=== PATIENT | female | born 1995 | race Caucasian/White ===

== ENCOUNTER 2019-02-16 22:32 | Emergency (ER) | payer MEDICAID, SELFPAY ==
[2019-02-16 22:33] VITALS: BP 154/89; PULSE 108; RESP 16; TEMP 36.2; O2SAT 100; BMI 31.8
[2019-02-16 23:20] VITALS: PULSE 104; RESP 16
--- NOTE | 2019-02-16 23:23 | ED.VISSUMM ---
- ER Visit Summary Date of Service: 02/16/19 Chief Complaint: Dizziness History of Present Illness: The patient is a 23 F who presents with dizziness that is been getting worse over the past 4 days. Patient states she feels shaky and lightheaded at times. Patient states that at times the room feels like it is spinning. Patient states this is worse with movement of her head. Patient denies any hearing changes or tinnitus. Patient admits to some palpitations. Patient states she occasionally has some tightness in her chest. Patient admits to nausea but denies any vomiting. Patient admits to a mild intermittent headache. Physical Examination: Vital signs are stable. Patient is afebrile. Patient is in no acute distress. Pupils are equal, round, and reactive to light bilaterally. Extraocular muscles are intact. There is some nystagmus with left lateral gaze. Cranial nerves II through XII are intact. Strength is 5/5 bilateral knee upper and lower extremities. There are no sensory deficits noted. Oral mucosa is pink and moist. Neck is supple. Trachea is midline. There is no JVD. Heart was regular rate and rhythm. Lungs are clear and equal bilaterally. Abdomen is soft. Bowel sounds are normal. There is no tenderness. There is no guarding. Test Results: CBC and basic metabolic profile were obtained and were within normal limits. Emergency Department Course and Treatment: Patient was given a dose of meclizine here. Patient felt better on reevaluation. Patient had no further dizziness. Patient was given a prescription for meclizine. Patient was instructed to drink plenty of fluids. Patient was instructed to follow-up with her primary care physician in 5 to 7 days. Patient understood and was agreeable with the plan. All questions were answered. Disposition: Discharge home Impression: Vertigo This note was generated with [employer] dictation software. It may contain incorrect words, spelling, and punctuation that were not noted in review of the chart prior to signing ED Disposition - Plan for ED Patient: Disposition: Home or Assisted Living Diagnosis: Vertigo Instructions: VERTIGO, Unspecified Prescriptions: Meclizine HCl [Antivert] 25 mg PO 4X/DAY PRN PRN #20 tab PRN Reason: Dizziness Prescription Printed Referrals: Care Physician,No Primary [Primary Care Provider] - 5-7 Days
[2019-02-16 23:43] LABS: Absolute Lymphocyte Count 2.45 X10^3/uL (0.83-4.51); Absolute Neutrophil Count 7.1 X10^3/uL (2.0-7.7); Basophil# 0.05 X10^3/uL; Basophil% 0.5 % (0-1); Eosinophil# 0.22 X10^3/uL; Eosinophils% 2.1 % (0-5); Hematocrit 37.9 % (37-47); Hemoglobin 12.7 g/dL (12.0-15.0); Lymphocyte # 2.45 X10^3/ul (4.0); Lymphocyte % 23.1 % (19-41); Mean Corp Hgb Conc 33.5 g/dL (32-36); Mean Corpuscular Hgb 29.3 pg (27.0-32.0); Mean Corpuscular Volume 87.5 fL (81-99); Mean Platelet Vol. 9.9 fl (6.2-12.0); Monocyte# 0.79 X10^3/uL; Monocyte% 7.4 % (0-10); NRBC Flagged by Analyzer 0 % (0-5); Neutrophil # 7.07 X10^3/uL (2.7-7.7); Neutrophil % 66.5 % (47-70); Platelet Count 324 K/mm3 (150-450); RBC Distribution Width CV 12.3 % (11.6-14.6); RBC Distribution Width SD 39.6 fl (35.1-43.9); Red Blood Count 4.33 M/mm3 (4.2-5.4); White Blood Count 10.6 K/mm3 (4.4-11.0)
[2019-02-16 23:54] LABS: Internal QC Validated? YES +Cl - CLEAR BKGD; Pregnancy, Serum, hCG Quali. NEGATIVE Negative
[2019-02-17] MEDS: Meclizine HCl 25 MG Tablet PO (00:07)
[2019-02-17] MEDS: 0.9% Normal Saline 1,000 ML 1000 ML IV (00:07)
[2019-02-17 00:10] LABS: Anion Gap 6 (5-15); BUN 19 mg/dL (7-18); BUN/Creat Ratio 21.7 RATIO (10-20); Calcium,Total 9.6 mg/dL (8.5-10.1); Chloride 106 mmol/L (98-107); Creatinine, Serum 0.88 mg/dL (0.55-1.02); EST Glomerular Filtration Rate 84 mL/min (>60); Est Glom Filt Rate - Afr Amer 102 mL/min (>60); Estimated Creatinine Clearance 75.03 ml/min; Glucose 137 mg/dL (74-106); Potassium 3.7 mmol/L (3.5-5.1); Sodium Level 138 mmol/L (136-145)
[2019-02-17 00:24] VITALS: BP 131/84; PULSE 87; RESP 16; O2SAT 97
== END 2019-02-17 00:35 | disposition home or self-care (01) ==
PROVIDERS: Emergency Provider Emergency Medicine
DX: R42 Dizziness and giddiness (principal); R11.0 Nausea; R51 Headache
CPT/HCPCS: 80048; 84703; 85025; 99285; J7030; A4216

== ENCOUNTER 2021-05-09 09:00 | Emergency (ER) | payer MEDICAID, SELFPAY ==
[2021-05-09 09:01] VITALS: BP 129/69; PULSE 90; RESP 17; TEMP 36.2; O2SAT 98; BMI 35.5
--- NOTE | 2021-05-09 09:11 | RAD_ITS ---
STUDY: X-RAY - LEFT FOOT CLINICAL: Female, 26 years old. Foot injury. TECHNIQUE: 3 view(s) of the foot. COMPARISON: None. FINDINGS: Normal talus, calcaneus, and tarsal bones. Normal visualized subtalar, talonavicular, calcaneocuboid, tarsal and tarsometatarsal articulations. Normal metatarsi. Normal metatarsophalangeal joint of the great toe. Normal tibial and fibular sesamoid bones. Normal interphalangeal joint of the great toe. Normal phalanges of the great toe. Normal second through fifth metatarsophalangeal joints. Normal interphalangeal joints and phalanges of the lesser toes. The soft tissue structures are unremarkable. RAD/Foot min 3 Views IMPRESSION: Normal x-ray examination of the foot. Electronically Signed: Pradip Mae MD at 9:45 EDT ,
--- NOTE | 2021-05-09 10:19 | EDS_ITS ---
HPI History of Present Illness HPI Narrative: Patient drainage to her left second toe that occurred this morning. Patient states she excellently dropped a can onto her toe.Patient presents with describes her pain as burning. Patient states it is worse whenever she tries to move it. Patient states nothing seems to help. Patient denies any paresthesias or weakness. Patient is unsure of her last tetanus. Patient denies any other injuries. Chief Complaint: Lower Extremity Injury Informant: patient Occured/Mechanism Mechanism/Context: Yes direct blow Onset/Context/Timing Onset: Today Context: Sudden Onset Timing: Continuous Quality of Pain: Burning Location: Left second toe Worsened by: Movement Relieved by: Rest Associated Symptoms Associated Symptoms: Negative for Parasthesia, Weakness and Loss of Funtion Narrative Tetanus Immunization: Unknown PFSH PFSH Home Medications meclizine 25 mg PO 4X/DAY PRN PRN #20 tab 02/17/19 [Rx Last Taken Unknown] Allergy/AdvReac Type Severity Reaction Status Date / Time Penicillins Allergy Rash Verified 05/09/21 09:00 Surgical History History of section Social History Smoking Status: Never smoker ROS ROS ED Constitutional Constitutional ED: Denies chills or fever(s) Eyes Eyes: Denies blurry vision or change in vision ENT ENT ED: Denies rhinorrhea or sore throat Cardiovascular Cardiovascular: Denies chest pain or palpitations Respiratory/Chest Respiratory/Chest: Denies cough or dyspnea Gastrointestinal Gastrointestinal: Denies nausea or vomiting Genitourinary Genitourinary ED: Denies dysuria or hematuria Musculoskeletal Musculoskeletal: Denies back pain or neck pain Integumentary Denies abscess or rash Neurologic Neurologic: Denies headache(s) or weakness Allergic/Immunologic Allergic/Immunologic ED: Denies mouth swelling or urticaria EXAM Physical Exam Const Vital Signs: 05/09/21 09:01 Temperature 97.1 F L Temperature Source Temporal Pulse Rate 90 Respiratory Rate 17 Blood Pressure 129/69 H Blood Pressure Mean 89 Pulse Ox 98 Oxygen Delivery Method Room Air Positive well nourished, well developed and obese General Appearance ED: well developed and NAD Nutritional Appearance: obese Neck full ROM and supple Extremity Extremity Narrative: There is superficial laceration over the distal phalanx of the left second toe along the nail margin. There is no active bleeding noted. There is an avulsion of the base of the nail plate. The base of the nail plate is laying on top of the eponychium. Sensation was intact to light touch in all digits. Capillary refill was less than 2 seconds in all digits. There is good range of motion. Neuro oriented x3, CN's II-XII intact bilaterally and moves all extremities Sensorium / Orientation: alert Motor Exam: strength 5/5 throughout Psych mental status grossly normal MDM MDM MDM Narrative Medical decision making narrative: X-rays of the left foot were obtained. There are 3 views. On my interpretation, there is no acute fracture. There is no dislocation. There is no soft tissue swelling. Radiologist also interpreted the x-rays and agrees. The left second toe was cleaned and prepped in a sterile manner. The left second toe was anesthetized 1% lidocaine via digital block. The nail plate was replaced underneath the eponychium. Xeroform gauze was applied. Patient tolerated procedure well. Patient was instructed to keep the wound clean and dry. Patient was given a referral for podiatry to follow-up in 3 to 5 days. Patient understood and was agreeable with the plan. All questions were answered. Radiography Diagnostic Testing: Clinical Impression(s) from Imaging Studies Foot X-Ray 05/09/21 09:11 IMPRESSION: Normal x-ray examination of the foot. Electronically Signed: Pradip Mae MD at 9:45 EDT Reading Location ID and State: [address] [place] [address] , Service support , Discharge Plan Triage Chief Complaint: Lower Extremity Injury ED Provider: Jose Godinez Dx/Rx/DC Orders Clinical Impression: Avulsion of toenail of left foot Instructions: ED Detached Fingernail or Toenail Prescriptions: No Action meclizine 25 MG tablet 25 mg PO 4X/DAY PRN PRN (Reason: Dizziness) Qty: 20 RF: 0 Primary Care Provider: Care Physician,No Primary Referrals: Fadumo Zazeuta DPM [STAFF PHYSICIAN] - 3-5 Days Care Physician,No Primary [Primary Care Provider] - Disposition Disposition: Home, Self Care
[2021-05-09] MEDS: Diphth,Pertuss(Acell),Tet Vac 0.5 ML Vial IM (11:22)
[2021-05-09] MEDS: Lidocaine 1% (20 ml mdv) 20 ML Vial INFILT (11:22)
== END 2021-05-09 13:04 | disposition home or self-care (01) ==
PROVIDERS: Emergency Provider Emergency Medicine; Visit Provider Emergency Medicine
DX: S91.205A Unspecified open wound of left lesser toe(s) with damage to nail, initial encounter (principal); W20.8XXA Other cause of strike by thrown, projected or falling object, initial encounter; E66.9 Obesity, unspecified; Z23 Encounter for immunization
CPT/HCPCS: 11760; 73630; 90471; 90715; 99282